=== PATIENT | female | born 1970 | race Caucasian/White ===

== ENCOUNTER 2022-06-03 02:11 | Emergency (ER) | payer BC, SELFPAY ==
[2022-06-03] MEDS ORDERED: hydrOXYzine 25 MG TAB ONE (02:38)
[2022-06-03] MEDS ORDERED: Famotidine 20 MG TAB ONE (02:38)
[2022-06-03] MEDS ORDERED: methylPREDNISolone Sod Succ/PF 125 MG/2 ML VIAL ONE (02:38)
[2022-06-03] MEDS ORDERED: Famotidine/PF 20 mg/2ml Vial ONE (02:39)
== END 2022-06-03 03:10 | disposition home or self-care (01) ==
LOC: BURERS 02:11
DX: T63.2X1A Toxic effect of venom of scorpion, accidental (unintentional), initial encounter (principal); I10 Essential (primary) hypertension; E78.5 Hyperlipidemia, unspecified; Z79.899 Other long term (current) drug therapy
CPT/HCPCS: 96372; 99282; J2930; S0028